=== PATIENT | female | born 1955 | race Caucasian/White ===

== ENCOUNTER → 2018-02-24 | Outpatient (CLI) | payer MEDICARE ==
[2012-02-06 04:04] VITALS: BP 112/69
== END ==
LOC: RAD 13:40 → MAMMO 13:45 → RAD 13:45
DX: Z13.820 Encounter for screening for osteoporosis (principal); M81.0 Age-related osteoporosis without current pathological fracture; Z78.0 Asymptomatic menopausal state; Z98.890 Other specified postprocedural states; Z90.710 Acquired absence of both cervix and uterus

== ENCOUNTER → 2018-03-31 | Outpatient (RCR) | payer MEDICARE ==
[2012-02-06 04:04] VITALS: BP 112/69
== END | disposition home or self-care (01) ==
LOC: PT
DX: M25.562 Pain in left knee (principal); M25.561 Pain in right knee; M54.2 Cervicalgia
CPT/HCPCS: G8981-GP; G8982-GP

== ENCOUNTER 2018-04-02 11:05 | Outpatient (RCR) | payer MEDICARE ==
[2012-02-06 04:04] VITALS: BP 112/69
== END 2018-04-02 11:30 | disposition home or self-care (01) ==
LOC: PT 11:05
DX: M25.562 Pain in left knee (principal); M25.561 Pain in right knee; M54.2 Cervicalgia

== ENCOUNTER → 2020-07-05 | Outpatient (CLI) | payer MEDICARE, OTHER ==
[2012-02-06 04:04] VITALS: BP 112/69
== END ==
LOC: RAD 08:22 → MAMMO 09:15
DX: M81.0 Age-related osteoporosis without current pathological fracture (principal)

== ENCOUNTER → 2020-07-05 | Outpatient (CLI) | payer MEDICARE, OTHER ==
[2012-02-06 04:04] VITALS: BP 112/69
== END ==
LOC: MAMMO 04-18 09:15
DX: Z12.31 Encounter for screening mammogram for malignant neoplasm of breast (principal); M81.0 Age-related osteoporosis without current pathological fracture

== ENCOUNTER → 2021-05-03 | Day surgery (SDC) | payer MEDICARE | END | disposition home or self-care (01) | LOC: MSO 07:13 | DX: K21.9 Gastro-esophageal reflux disease without esophagitis (principal); K44.9 Diaphragmatic hernia without obstruction or gangrene; K29.30 Chronic superficial gastritis without bleeding; E78.5 Hyperlipidemia, unspecified; Z90.89 Acquired absence of other organs; Z79.899 Other long term (current) drug therapy; Z82.3 Family history of stroke; Z83.3 Family history of diabetes mellitus; Z79.82 Long term (current) use of aspirin | CPT/HCPCS: 00731; J2704; J7120 ==

== ENCOUNTER → 2021-09-21 | Emergency (ER) | payer MEDICARE, OTHER ==
[~2021-09-21] VITALS: Ht 172.7 cm; Wt 68.2 kg
[~2021-09-21] MED LIST: OXYBUTYNIN CHLO15 MG PO; PANTOPRAZOLE SO40 MG PO; PRAVASTATIN SOD20 MG PO
[2021-09-21 19:39] VITALS: BP 127/72
== END ==
LOC: ED 16:30
DX: S06.9X1A Unspecified intracranial injury with loss of consciousness of 30 minutes or less, initial encounter (principal); S06.321A Contusion and laceration of left cerebrum with loss of consciousness of 30 minutes or less, initial encounter; S49.91XA Unspecified injury of right shoulder and upper arm, initial encounter; Z23 Encounter for immunization; W01.198A Fall on same level from slipping, tripping and stumbling with subsequent striking against other object, initial encounter
CPT/HCPCS: 90715

== ENCOUNTER 2022-01-14 13:00 | Outpatient (RCR) | payer MEDICARE, OTHER | END 2022-02-11 | disposition home or self-care (01) | LOC: PT | DX: S40.911D Unspecified superficial injury of right shoulder, subsequent encounter (principal); X58.XXXD Exposure to other specified factors, subsequent encounter ==

== ENCOUNTER 2022-02-14 09:51 | Outpatient (RCR) | payer MEDICARE, OTHER | END 2022-03-13 | disposition home or self-care (01) | LOC: PT | DX: S40.911D Unspecified superficial injury of right shoulder, subsequent encounter (principal); X58.XXXD Exposure to other specified factors, subsequent encounter ==

== ENCOUNTER 2022-04-16 08:00 | Outpatient (RCR) | payer MEDICARE, OTHER | END 2022-05-14 | disposition home or self-care (01) | LOC: PT | DX: S40.911D Unspecified superficial injury of right shoulder, subsequent encounter (principal); X58.XXXD Exposure to other specified factors, subsequent encounter ==

== ENCOUNTER → 2023-03-26 | Outpatient (CLI) | payer MEDICARE, OTHER | LOC: RAD 13:38 | DX: M81.8 Other osteoporosis without current pathological fracture (principal) ==

== ENCOUNTER → 2023-03-26 | Outpatient (CLI) | payer MEDICARE, OTHER | LOC: MAMMO 13:36 | DX: Z12.31 Encounter for screening mammogram for malignant neoplasm of breast (principal) ==